=== PATIENT | male | born 1935 | race Caucasian/White ===

== ENCOUNTER 2017-11-11 07:48 | Outpatient (CLI) | payer MEDICARE, OTHER ==
[~2017-11-11] VITALS: Ht 177.8 cm; Wt 65.9 kg
--- NOTE | ~2017-11-11 | HEMODYNAMI ---
PATIENT:ANDRES GONZALES MEDICAL RECORD: [id number] : 31 LOCATION:[facility] ADMISSION DATE: 11/11/17 Generatedon:11/11/201710:29 Patient name: ANDRES GONZALES Patient #: [id number] SSN: : 1935 Date of study: 11/11/2017 Page: Of Hemodynamic Procedure Report Patient Data Patient Demographics Procedure consent was obtained First Name: ANDRES Gender: Male Last Name: CHRISTIAN : 1935 [facility] Initial: SOFIA Age: 82 year(s) Patient #: [id number] Race: Unknown Additional ID: [id number] Contact details Address: [address] [place] [address] [place] State: [place] City: [place] Zip code: [address] Past Medical History Allergies: No known allergies Admission Admission Data Admission Date: 11/11/2017 Admission Time: 7:48 Procedure Procedure Types Cath Procedure Diagnostic Procedure LHC LH w/Coronaries Sedation Charges Moderate Sedation up to 15 minutes Procedure Description Procedure Date Procedure Date: 11/11/2017 Procedure Start Time: 10:17 Procedure End Time: 10:27 Procedure Staff Name Function Chase Terry MD Performing Physician Maggi Cardenas RT Monitor Brandt Infante RN Nurse Arnaldo Guerrero RT Scrub Procedure Data Cath Procedure Fluoroscopy Diagnostic fluoroscopy Total fluoroscopy Time: 1.1 time: 1.1 min min Diagnostic fluoroscopy Total fluoroscopy dose: 498 dose: 498 mGy mGy Contrast Material Contrast Material Type Amount (ml) Isovue 300 60 Entry Location Entry Primary Successful Side Size Upsize Upsize Entry Closure Succes sful Closure Location (Fr) 1 (Fr) 2 (Fr) Remarks Device Remarks Femoral Right 5 Fr Exoseal artery Estimated blood loss: 5 ml Diagnostic catheters Device Type Used For End Catheter Placement MULTIPACK Pigtail 5 Fr LV Angiography catheter MULTIPACK JL 4.0 5Fr Left Coronary catheter Angiography MULTIPACK 3DRC 5Fr Right Coronary catheter Angiography Procedure Medications Medication Administration Route Dosage 0.9% NaCl I.V. 100 ml/hr Oxygen etCO2 Nasal cannula 2 l/min Heparin Flush Bag added to field 2 bags (1000units/500ml NS) Lidocaine 2% added to field 20 Versed I.V. 1 mg Fentanyl I.V. 50 mcg Hemodynamics Rest Heart Rate: 57 (bpm) Snapshots Pre Cath Intra NCS Post Cath Vital Signs Time Heart Resp SPO2 etCO2 NIBP (mmHg) Rhythm Pain Sedation Rate (ipm) (%) (mmHg) Status Level (bpm) 10:01:25 51 13 100 26.5 128/69(105) NSR 0 (11) 10(A) , No pain 10:06:23 50 36 100 22.7 124/66(82) NSR 0 (11) 10(A) , No pain 10:10:58 50 15 100 28 120/67(90) NSR 0 (11) 10(A) , No pain 10:15:26 53 15 100 29.5 96/70(85) NSR 0 (11) 9(A) , No pain 10:20:27 52 18 100 32.5 115/69(92) NSR 0 (11) 9(A) , No pain 10:24:58 60 12 100 31.1 115/71(93) NSR 0 (11) 10(A) , No pain 10:27:54 60 14 100 31.8 116/69(82) NSR 0 (11) 10(A) , No pain Medications Time Medication Route Dose Verified Delivered Reason Notes Eff ectiveness by by 10:02:50 0.9% NaCl I.V. 100 Brandt Brandt Per ml/hr Naresh Infante physician RN RN 10:03:02 Oxygen etCO2 2 Brandt Brandt Per Nasal l/min Naresh Infante physician cannula RN RN 10:03:14 Heparin Flush added 2 Brandt Brandt used for Bag to bags Lorigan Lorigan procedure (1000units/500ml field RN RN NS) 10:03:28 Lidocaine 2% added 20ml Brandt Brandt for local to vial Lorigan Lorigan anesthetic field RN RN 10:11:24 Versed I.V. 1 mg Brandt Brandt for Lorigan Lorigan sedation RN RN 10:11:35 Fentanyl I.V. 50 Brandt Brandt for mcg Lorigan Lorigan sedation RN radiology rn Log Time Note 9:31:46 Time tracking: Regular hours 9:31:51 Plan of Care:Hemodynamics will remain stable., Cardiac rhythm will remain stable., Comfort level will be maintained., Respiratory function will remain adequate., Patient/ family verbilizes understanding of procedure., Procedure tolerated without complication., Recovers from procedure without complications.. 9:44:46 Maggi Cardenas RT(R) sent for patient. Start room use. 9:50:58 Patient received from Pre/Post Procedure Room to CCL 1 Alert and oriented. Tansferred to table in Supine position. 9:51:00 Warm blankets applied, and diane hugger turned on for patient comfort. 9:51:00 Correct patient and procedure confirmed by team. 9:51:02 Signed procedure consent form obtained from patient. 9:51:03 ECG and BP/O2 sat monitors applied to patient. 10:00:40 Vital chart was started 10:00:49 Rhythm: sinus bradycardia 10:00:51 Full Disclosure recording started 10:01:06 H&P Date Dictated: 10/29/2017 Within 30 days and on chart., H&P Addendum completed by physician on day of procedure. (MUST COMPLETE FOR ALL OUTPATIENTS). 10:01:07 Pre-procedure instructions explained to patient. 10:01:08 Pre-op teaching completed and patient verbalized understanding. 10:01:09 Family in waiting room. 10:01:12 Patient NPO since Midnight. 10:01:18 Patient allergic to No known allergies 10:01:20 Is the patient allergic to Iodine/contrast media? No. 10:01:22 Is patient on blood thinner?No 10:02:50 0.9% NaCl 100 ml/hr I.V. was administered by Brandt Infante RN; Per physician; 10:03:02 Oxygen 2 l/min etCO2 Nasal cannula was administered by Brandt Infante RN; Per physician; 10:03:14 Heparin Flush Bag (1000units/500ml NS) 2 bags added to field was administered by Brandt Infante RN; used for procedure; 10:03:28 Lidocaine 2% 20ml vial added to field was administered by Brandt Infante RN; for local anesthetic; 10:08:06 Patient diabetic? No. 10:08:13 Previous problem with sedation/anesthesia? No ? 10:08:18 Snore? Yes 10:08:20 Sleep apnea? No 10:08:22 Deviated septum? No 10:08:23 Opens mouth fully? Yes 10:08:23 Sticks out tongue? Yes 10:08:26 Airway obstruction? No ? 10:08:40 Dentures? No ? 10:08:54 Pre procedure: right dorsailis pedis pulse 2+ Normal; easily identifiable; not easily obliterated 10:09:00 Patient pain scale 0/10 ?. 10:09:08 IV patent on arrival in left hand with 0.9% NaCl at [facility]. 10:09:12 Lab results completed and on chart. 10:09:15 Right groin area was prepped with chlora-prep and draped in sterile fashion 10:09:18 Modified Tony's test Ulnar > 7 seconds. 10:09:19 Alarms reviewed by R. N. 10:09:20 Sharps counted by scrub and verified by R.N. 10:09:28 Use device set Femoral Dx 10:09:29 ACIST Syringe (65552) opened to sterile field. 10:09:29 Bag Decanter (2002S) opened to sterile field. 10:09:29 Medline Cath Pack ([id number]) opened to sterile field. 10:09:32 DIAGNOSTIC WIRE .035 260cm J wire (112099) opened to sterile field. 10:09:34 ACIST Hand Control (56232) opened to sterile field. 10:09:34 ACIST Manifold (53356) opened to sterile field. 10:09:35 DIAGNOSTIC Multipack 5Fr catheter set (BT6742) opened to sterile field. 10:09:36 Tegaderm 4 x 4 (1626W) opened to sterile field. 10:09:37 PERCUTANEOUS ENTRY 19GA needle opened to sterile field. 10:09:45 SHEATH 5Fr Prelude ([id number]) opened to sterile field. 10:10:48 Final Timeout: patient, procedure, and site verified with staff and physician. All members of the team are in agreement. 10:11:01 Right groin site verified by team. 10:11:04 Physical assessment completed. ASA score P 2 - A patient with mild systemic disease as per Chase Terry MD. 10:11:07 Sedation plan: IV Moderate Sedation Medication:Versed, Fentanyl 10:11:24 Versed 1 mg I.V. was administered by Brandt Infante RN; for sedation; 10:11:35 Fentanyl 50 mcg I.V. was administered by Brandt Infante RN; for sedation; 10::48 Baseline sample Acquired. 10:17:28 Procedure started. 10:17:34 Local anesthetic to right femoral artery with Lidocaine 2% by Chase Terry MD.INITIAL ACCESS ONLY 10:18:11 A 5 Fr sheath was inserted into the Right Femoral artery 10:18:38 A MULTIPACK Pigtail 5 Fr catheter was advanced over the wire and used for LV Angiography. 10:19:26 LV gram done using LOVE 10:19:36 EF : 40 % 10::44 Injector settings: Ml/sec: 10, Volume: 20, 10:19:45 Catheter removed. 10:19:52 A MULTIPACK JL 4.0 5Fr catheter was advanced over the wire and used for Left Coronary Angiography. 10:21:28 Catheter removed. 10:21:42 A MULTIPACK 3DRC 5Fr catheter was advanced over the wire and used for Right Coronary Angiography. 10:23:05 Catheter removed. 10:23:08 EXOSEAL 5Fr (EX500) opened to sterile field. 10:24:11 Sheath removed intact; hemostasis achieved with Exoseal to the Right Femoral artery. 10:25:15 Procedure ended.(Physican Out) 10:25:37 Fluoroscopy time 01.10 minutes. 10:25:40 Fluoroscopy dose: 498 mGy 10:25:40 Flurop Dose total: 498 10:26:05 Contrast amount:Isovue 300 60ml. 10:26:06 Sharps counted by scrub and verified by R.N. 10:26:07 Insertion/operative site no bleeding no hematoma. 10:26:10 Post-op/insertion site Right Femoral artery dressed using a 4 x 4 and Tegaderm. 10:26:14 Post right femoral artery:stable, clean and dry 10:26:18 Post Procedure Pulses reassessed and unchanged 10:26:39 Post-procedure physical assessment completed. ASA score P 2 - A patient with mild systemic disease as per Chase Terry MD. 10:26:42 Post procedure rhythm: unchanged. 10:26:55 Estimated blood loss: 5 ml 10:26:56 Post procedure instruction explained to patient.Patient verbalizes understanding. 10:26:57 Patient needs reinforcement of post procedure teaching. 10:26:57 Procedure and supply charges have been captured, reviewed, submitted and are correct. 10:27:01 Vital chart was stopped 10:27:03 See physician's report for complete and final results. 10:27:11 Vital chart was started 10:27:47 Report given to Pre/Post Procedure Room. 10:27:51 Procedure ended. 10:27:51 Full Disclosure recording stopped 10:28:03 End room use (Document Last) 10:28:22 Patient transfered to Pre/Post Procedure Room with Stretcher. 10:29:06 Procedure type changed to Cath procedure, Diagnostic procedure, LHC, LHC w/Coronaries, Sedation Charges, Moderate Sedation up to 15 minutes 10:29:34 DR MENA CONSULTED FOR CABG 10::47 Vital chart was stopped Device Usage Item Name Manufacture Quantity Catalog Hospital Part Current Minimal Lot# / Number Charge Number Stock Stock Serial# Code ACIST Acist 1 [id number] [id number] 050154 [id number] 20 Syringe Medical (86231) Systems Inc Bag Decanter Microtek 1 2001S 506736 08155 834892 5 (2001S) Medical Inc. Medline Cath Cardinal 1 [id number] 740525 16464 705193 5 Pack Health ([id number]) DIAGNOSTIC St Walt 1 306655 862991 053259 295988 30 WIRE .035 260cm J wire (366437) ACIST Hand Acist 1 03420 132235 697252 656405 5 Control Medical (29520) Systems Inc ACIST Acist 1 07452 294595 596678 844171 5 Manifold Medical (81900) Systems Inc DIAGNOSTIC Cardinal 1 HE6556 998928 73451 882494 30 Multipack Health 5Fr catheter set (TU8917) Tegaderm 4 x 3M 1 1626W 892857 118489 370510 5 4 (1626W) PERCUTANEOUS Cook Medical 1 B73580 035920 135590 5 ENTRY 19GA needle SHEATH 5Fr Merit 1 [id number] 933887 570445 199397 5 Prelude Medical ([id number]) MULTIPACK Cardinal 1 674010 5 Pigtail 5 Fr Health catheter MULTIPACK JL Cardinal 1 042484 5 4.0 5Fr Health catheter MULTIPACK Cardinal 1 152311 5 3DRC 5Fr Health catheter EXOSEAL 5Fr Cardinal 1 EX500 350323 578033 868585 10 (EX500) Health Signature Audit [place] Stage Time Signature Unsigned Intra-Procedure 11/11/2017 Maggi 10:29:45 AM Counts RT(R) Signatures Monitor : Maggi Signature : Counts RT Date : Time : [address] [address]
--- NOTE | ~2017-11-11 | OP ---
PATIENT NAME: ANDRES GONZALES MEDICAL RECORD: [id number] :33 LOCATION:D.CAT ADMISSION DATE: SURGEON: KAM BRUSH MD DATE OF OPERATION: 11/11/2017 PROCEDURES: 1. Left heart catheterization. 2. Selective coronary angiography. 3. Left ventriculogram. INDICATION: Angina and coronary artery disease. DESCRIPTION OF PROCEDURE: After informed consent obtained and after detailed discussion of risks, benefits as well as alternative therapies, the patient elected to proceed with angiogram and heart catheterization. The right femoral area is prepped and draped in normal sterile fashion. Right femoral artery was cannulated via modified Seldinger technique with placement of 6-[place] sheath. All catheter exchanges through the sheath. FINDINGS: Left ventriculogram performed in standard 30-degree LOVE view reveals global hypokinesis throughout all segments. Overall ejection fraction 35% to 40%. SELECTIVE CORONARY ANGIOGRAPHY: 1. Left main has a greater than 80% stenosis at the ostium. 2. Left circumflex has 99% stenosis at the ostium. 3. Left anterior descending has multiple areas of 80% and 90% stenosis with heavy calcification proximally. 4. The right coronary has multiple areas of 99% stenosis throughout the vessel. OVERALL IMPRESSION: Severe 3-vessel coronary artery disease with mildly to moderately depressed ejection fraction. Evaluate for coronary artery bypass graft surgery. TRANSINT:[id number] Voice Confirmation ID: [id number] DOCUMENT ID: [id number] KAM BRUSH MD at 1056 CC: [id number] DICTATION DATE: 11/11/17 1029 MANAGER PROGRAMS: 11/11/17 1234 DEP CLI 11/11/[address] [address]
[2017-11-11] MEDS ORDERED: FLOMAX0.4 MG PO (08:25)
[2017-11-11 08:33] VITALS: BP 146/89; Ht 177.8 cm; Wt 65.9 kg
[2017-11-11 08:49] LABS: BASOPHILS 0.5 % (0-2); EOSINOPHILS 0.9 % (0-7); HEMATOCRIT 44.4 % (42.0-54.0); HEMOGLOBIN 15.7 g/dL (13.5-17.5); IMMATURE GRANULOCYTES 0.5 % (0-5); LYMPHOCYTES 22.1 % (15-50); MCH 32.5 pg (26.0-34.0); MCHC 35.4 g/dL (31.0-37.0); MCV 91.9 fL (80.0-100.0); MEAN PLATELET VOLUME 9.8 fL (7.4-10.4); MONOCYTES 6.7 % (2-11); NEUTROPHILS 69.3 % (40-80); PLATELET COUNT 161 10x3/uL (130-400); RBC 4.83 10x6/uL (4.20-6.10); RDW 12.3 % (11.5-14.5); WBC 4.3 10x3/uL (4.8-10.8)
[2017-11-11 08:52] LABS: ANION GAP 15.9 mmol/L (8-16); CALCIUM 8.6 mg/dL (8.5-10.1); CARBON DIOXIDE 25.8 mmol/L (21.0-32.0); CREATININE - SERUM 1.2 mg/dL (0.6-1.3); POTASSIUM - SERUM 3.7 mmol/L (3.5-5.1)
[2017-11-12] MEDS ORDERED: PROSCAR5 MG PO (19:10)
== END 2017-11-11 14:30 | disposition home or self-care (01) ==
LOC: D.CATH 07:48
PROVIDERS: Internal Medicine Interventional Cardiology
DX: I20.9 Angina pectoris, unspecified (principal); R07.9 Chest pain, unspecified; R94.30 Abnormal result of cardiovascular function study, unspecified; Z01.812 Encounter for preprocedural laboratory examination

== ENCOUNTER 2017-11-12 14:05 | Inpatient (IN) | payer MEDICARE, OTHER ==
[2017-11-12] VITALS (10 sets, daily range): BP systolic 122–154; BP diastolic 65–85; BMI 20.8
[~2017-11-12] VITALS: Ht 177.8 cm; Wt 73.6 kg
--- NOTE | ~2017-11-12 | EC ---
PATIENT:ANDRES GONZALES DATE OF SERVICE: 11/12/17 SEX: M MEDICAL RECORD: [id number] DATE OF : 33 LOCATION:[place] [address] AGE OF PATIENT: 82 ADMISSION DATE: 11/12/17 REFERRING PHYSICIAN: INTERPRETING PHYSICIAN: KAM TERRY MD ECHOCARDIOGRAM REPORT ECHO CHARGES Date: 11/13 CLINICAL DIAGNOSIS: ECHOCARDIOGRAPHIC MEASUREMENTS (adult normal given) AC root (d.<3.7cm) cm LV Septum d (<1.2 cm> cm Valve Excursion cm LV Septum (systole) cm Left Atria (s.<4.0cm> cm LVPW d(<1.2cm) cm RV (d.<2.3cm) cm LVPW (sytole) cm LV diastole(<5.6CM) cm MV E-F(>70mm/sec) cm LV systole cm LVOT Diameter cm MV exc.(>10mm) cm Est.ejection fraction (50-75%) % DOPPLER: LVIT cm/sec A cm/sec E cm/sec LA 4.6 cm/sec RVSP mmHg LVOT cm/sec AOP1/2T m/s Asc. Ao cm/sec RVOT cm/sec RA cm/sec PA cm/sec AV Gradient Peak mmHg AV Mean mmHg AV Area cm MV Gradient Peak mmHg MV Mean mmHg MV Area cm COMMENTS: MENA PATIENT Information Technology Architect: Paulette SAWYER Kennel Keeper: Kate Terry TAPE# PACS Pericardial Effusion DATE OF SERVICE: PROCEDURE: Transesophageal echo evaluation of valvular structures during bypass surgery. FINDINGS: 1. Left ventricular chamber size is within normal limits. Left ventricular systolic function is normal. Overall ejection fraction estimated at 55%. 2. Left atrium is enlarged at 4.6 cm. Right atrium and right ventricle chamber sizes are as well mildly dilated. ECHOCARDIOGRAM REPORT [id number] ANDRES GONZALES 3. Valvular structures have normal structure and motion. 4. Doppler interrogation only reveals trace aortic insufficiency, mild mitral regurgitation, no other valvular insufficiency or stenosis. 5. No evidence of pericardial effusion or left ventricular thrombus. TRANSINT:[id number] Voice Confirmation ID: [id number] DOCUMENT ID: [id number] KAM TERRY MD at 1056 CC: [id number] DICTATION DATE: 11/13/17 1249 ALUM PLANT SUPERVISOR: 11/13/17 1305 ADM IN [facility] [address] [place] [id number]
--- NOTE | ~2017-11-12 | HP ---
PATIENT: ANDRES GONZALES MEDICAL RECORD: [id number] ACCOUNT: [id number] [id number] ADMISSION DATE: 11/12/17 HISTORY AND PHYSICAL EXAMINATION DATE OF ADMISSION: 11/12/2017 REASON FOR ADMISSION: Unstable angina, multivessel coronary artery disease. HISTORY OF PRESENT ILLNESS: An 82-year-old male with recent cardiac catheterization, developed unstable angina, admitted. The history and physical recently dictated by Dr. Terry is unchanged. Specifically, the patient has unstable angina, mild dementia. PAST MEDICAL HISTORY: Unchanged. PAST SURGICAL HISTORY: Unchanged. ALLERGIES: Unchanged. MEDICATIONS: Unchanged. SOCIAL HISTORY: Unchanged. FAMILY HISTORY: Unchanged. REVIEW OF SYSTEMS: Unchanged. PHYSICAL EXAMINATION: GENERAL: Elderly male. VITAL SIGNS: Within normal limits. HEENT: Unremarkable. NECK: No carotid bruits. HEART: Regular rate and rhythm. No murmur, gallop or rub. LUNGS: Clear to auscultation. ABDOMEN: Without mass or tenderness. EXTREMITIES: There is palpable radial, femoral and pedal pulses. NEUROLOGIC: Intact. ASSESSMENT: Multivessel coronary artery disease. PLAN: Coronary artery bypass graft. The patient understands the rationale for surgery, alternatives, benefits, risks. He understands the risks including but not limited to bleeding, transfusion, infection, reoperation, graft closure, heart attack, stroke, arrhythmia, organ failure, and . He gives consent. TRANSINT:[id number] Voice Confirmation ID: [id number] DOCUMENT ID: [id number] HISTORY AND PHYSICAL [id number] ANDRES GONZALES JOES M MENA MD at 1023 CC: [id number] DICTATION DATE: 11/13/17 1323 SOCIOLOGY INSTRUCTOR: 11/13/17 1332 ADM IN [place] [id number] [place] [address]
--- NOTE | ~2017-11-12 | OP ---
PATIENT NAME: ANDRES GONZALES MEDICAL RECORD: [id number] :33 LOCATION:[facility] ADMISSION DATE:11/12/17 SURGEON: JOSE M MENA MD DATE OF OPERATION: 11/13/2017 NECKTIE STITCHER: 1. Jamshid Sapp MD 2. MATTHEW Rogers OPERATION PERFORMED: Coronary bypass graft times 3 (reverse saphenous vein graft from aorta to LAD, aorta to obtuse marginal, aorta to posterior descending artery). PREOPERATIVE DIAGNOSIS: Coronary artery disease with unstable angina. POSTOPERATIVE DIAGNOSES: Coronary artery disease with unstable angina, mild aortic insufficiency, and mitral regurgitation. COMPLICATIONS: None. SPECIMENS: None. BLOOD LOSS: Total. CONDITION: Stable. DISPOSITION: ICU. OPERATIVE FINDINGS: 1. Internal mammary artery was densely adherent to the internal ribs and was not able to be taken down in a manner to be used safely, therefore it was oversewn and abandoned. 2. LAD was a 2.0-mm vessel with mild disease. 3. Obtuse marginal 2.0 mm vessel with severe disease. 4. Posterior descending artery 1.5 mm vessel with severe disease, the smaller caliber portion of vein was used for this bypass. 5. Transesophageal echocardiography, 55% ejection fraction, 1+ mitral regurgitation and aortic insufficiency. DESCRIPTION OF PROCEDURE: The patient was brought to the operating suite. General anesthesia was obtained. The patient was prepped and draped. Greater saphenous vein was harvested from the right lower extremity. Side branch was clipped. The vessel removed, inspected for bleeding and interrupted suture was used for bleeding sites and then the leg irrigated and closed. Median sternotomy incision was made. Subcutaneous tissue divided with electrocautery. Sternum was divided with a saw. Left hemisternum was elevated. The pleural cavity was entered. Left internal mammary and vein were taken down as a pedicle graft due to the dense adhesions, it was not deemed usable. Heparin was given. Sternal retractor was placed. Pericardium was opened. The patient was cannulated, placed on cardiopulmonary bypass. Sites for distal anastomoses were selected. Retrograde cardioplegia cannula was inserted. Crossclamp was placed. Cardioplegia given antegrade and retrograde and this repeated at 15-minute intervals during the crossclamp time including down the completed vein grafts. OPERATIVE REPORT [id number] CHRISTIAN,ANDRES SOFIA Distal anastomosis was performed in standard technique. Proximal anastomosis, single cross-clamp technique. The aortic root de-aired and flow restored. Aortic root vent site oversewn with pledgeted Prolene. The patient resumed a spontaneous rhythm. Atrial and ventricular pacing wires were placed. Drains were placed in the mediastinum with the tip in the right pleural cavity, one in left pleural cavity. The patient was stable, weaned from cardiopulmonary bypass. The patient was decannulated. The cannula sites were oversewn. Protamine was given. Irrigation was performed. Pericardial fat was loosely reapproximated. Left chest was evacuated and irrigated. The internal mammary was clipped distally and proximally oversewn. The left chest was evacuated and irrigated and inspected for bleeding. Sternum was closed with wires. The patient was stable and chest closed. Fascia was closed, subcutaneous tissue close, skin was closed. Dermabond was placed. The needle and sponge counts were reported as correct. The patient was taken to ICU in stable condition. TRANSINT:[id number] Voice Confirmation ID: [id number] DOCUMENT ID: [id number] JOSE M MENA MD at 1023 CC: KAM BRUSH [id number] DICTATION DATE: 11/13/17 1321 SHOEMAKER CUSTOM: 11/13/17 1404 ADM IN [place] [id number] [place] [id number]
--- NOTE | ~2017-11-12 | OP ---
PATIENT NAME: ANDRES GONZALES MEDICAL RECORD: [id number] :33 LOCATION:[facility] ADMISSION DATE:11/12/17 SURGEON: MANISH MENA MD DATE OF OPERATION: 11/14/2017 SURGEON: Manish Mena MD CHRONIC MANAGER: MATTHEW Rogers OPERATION PERFORMED: Mediastinal exploration for hemorrhage and evacuation of mediastinal hematoma. PREOPERATIVE DIAGNOSES: Hypotension and mediastinal hematoma. POSTOPERATIVE DIAGNOSES: Mediastinal hematoma with no evidence of cardiac tamponade and no pericardial effusion or hematoma. ANESTHESIA: General endotracheal anesthesia. ESTIMATED BLOOD LOSS: 50 cc, 1 unit packed red blood cells. CONDITION: Stable. DISPOSITION: CV ICU. SPECIMEN: None. OPERATIVE FINDINGS: 1. The patient actually increased his blood pressure after intubation on positive pressure ventilation, Bert was weaned from 0.9-0.3. 2. Removal of old suture material and sternal wires with no change in the blood pressure, clotted hematoma posterior to the sternotomy that extended slightly to the left, internal mammary harvest site, and sternal edges were hemostatic, were inspected 3 times. 3. Pericardial fat sutures were removed and there was no clotted blood within the pericardium, grafts lay appropriately and were patent and the cardiac function was normal. The patient did develop recurrent atrial fibrillation. OPERATIVE INDICATION: The patient with hypotension requiring maximal Bert-Synephrine and developed atrial fibrillation within the 24-hour postoperative period. OPERATIVE PROCEDURE IN DETAIL: The patient was brought to the operating suite. General anesthesia was obtained, the patient was prepped and draped. Old suture material was removed. Sternal wires were removed. Sternum was opened. Hemostasis was ensured around the edges of the sternum. Left chest was carefully explored. No bleeding at the internal mammary harvest site nor the proximal or distal end and the clotted hematoma was removed. The old chest tubes were removed. The sutures and the pericardial fat were removed and inside the pericardium, the graft lay appropriately and there was no clotted blood. Thorough irrigation with vancomycin, irrigation was performed and the pericardial sutures were replaced. The tube was placed in the mediastinum with the tip in the right pleural cavity and a new tube to the left apex. Thorough irrigation was undertaken and all surgical sites again inspected with no bleeding, sternum was closed with wires. A single suture was used around the OPERATIVE REPORT [id number] ANDRES GONZALES wires. Hemostasis was ensured and the chest was closed. The patient was stable and the chest closed. The patient did develop atrial fibrillation. The fascia was closed. Subcutaneous tissue was closed. Skin was closed. Dermabond was placed. The patient returned to the ICU in stable condition. TRANSINT:[id number] Voice Confirmation ID: [id number] DOCUMENT ID: [id number] MANISH MENA MD at 1058 CC: [id number] DICTATION DATE: 11/14/17 1418 PROPELLER INSPECTOR: 11/14/17 1526 ADM IN [place] [id number] [place] [address]
[~2017-11-12 14:05] MED LIST: FLOMAX0.4 MG PO
[2017-11-12 15:44] LABS: BASOPHILS 0.4 % (0-2); EOSINOPHILS 0.8 % (0-7); HEMATOCRIT 44.7 % (42.0-54.0); HEMOGLOBIN 15.7 g/dL (13.5-17.5); IMMATURE GRANULOCYTES 0.4 % (0-5); LYMPHOCYTES 21.4 % (15-50); MCH 32.4 pg (26.0-34.0); MCHC 35.1 g/dL (31.0-37.0); MCV 92.4 fL (80.0-100.0); MEAN PLATELET VOLUME 9.7 fL (7.4-10.4); MONOCYTES 9.7 % (2-11); NEUTROPHILS 67.3 % (40-80); PLATELET COUNT 165 10x3/uL (130-400); RBC 4.84 10x6/uL (4.20-6.10); RDW 12.3 % (11.5-14.5)
[2017-11-12 16:05] LABS: APPEARANCE CLEAR (CLEAR); BILIRUBIN NEGATIVE (NEGATIVE); COLOR YELLOW (YELLOW); GLUCOSE NEGATIVE (NEGATIVE); KETONE NEGATIVE (NEGATIVE); NITRITE NEGATIVE (NEGATIVE); PROTEIN NEGATIVE (NEGATIVE); UROBILINOGEN NORMAL (NORMAL)
[2017-11-12 16:07] LABS: INR 1.07 (0.85-1.17); PROTIME 13.5 SECONDS (11.6-15.0)
[2017-11-12 16:13] LABS: APTT 31.1 SECONDS (22.8-39.4)
[2017-11-12 17:30] LABS: ALBUMIN 4.2 g/dL (3.4-5.0); ANION GAP 13.2 mmol/L (8-16); BILIRUBIN - TOTAL 0.81 mg/dL (0.2-1.3); CALCIUM 8.6 mg/dL (8.5-10.1); CREATININE - SERUM 1.1 mg/dL (0.6-1.3); PHOSPHOROUS 3.9 mg/dL (2.5-4.9); POTASSIUM - SERUM 4.2 mmol/L (3.5-5.1); PROTEIN - SERUM 7.8 g/dL (6.4-8.2); T4 THYROXIN - FREE 0.88 ng/dL (0.76-1.46); THYROID STIMULATING HORMONE 2.46 uIU/mL (0.36-3.74); URIC ACID 3.8 mg/dL (2.6-7.2)
[2017-11-12] MEDS ORDERED: PROSCAR5 MG PO (19:10)
[2017-11-13] VITALS (46 sets, daily range): BP systolic 85–140; BP diastolic 47–78; BMI 20.8
[2017-11-13] MEDS ORDERED: THERMOTABS 1 GM1 GM PO (01:01)
[2017-11-13 08:18] LABS: PLT FUNCT.(P2Y12) PLAVIX 247 PRU (194-418)
[2017-11-13 21:58] LABS: HEMATOCRIT 29.7 % (42.0-54.0); HEMOGLOBIN 10.4 g/dL (13.5-17.5); MCH 31.7 pg (26.0-34.0); MCV 90.5 fL (80.0-100.0); MEAN PLATELET VOLUME 9.9 fL (7.4-10.4); PLATELET COUNT 125 10x3/uL (130-400); RBC 3.28 10x6/uL (4.20-6.10); RDW 12.5 % (11.5-14.5); WBC 20.1 10x3/uL (4.8-10.8)
[2017-11-13 22:17] LABS: LYMPHOCYTES 3 % (15-50); NEUTROPHILS 93 % (40-80)
[2017-11-13 22:18] LABS: PLATELET ESTIMATE NORMAL
[2017-11-13 22:20] LABS: SCHISTOCYTES OCC
[2017-11-14] VITALS (84 sets, daily range): BP systolic 60–123; BP diastolic 44–80; Ht 177.8 cm; Wt 73.6 kg
[2017-11-14 02:24] LABS: HEMATOCRIT 28.4 % (42.0-54.0); HEMOGLOBIN 9.8 g/dL (13.5-17.5)
[2017-11-14 06:15] LABS: HEMATOCRIT 26.9 % (42.0-54.0); HEMOGLOBIN 9.4 g/dL (13.5-17.5); MCH 31.4 pg (26.0-34.0); MCHC 34.9 g/dL (31.0-37.0); MEAN PLATELET VOLUME 10.3 fL (7.4-10.4); RBC 2.99 10x6/uL (4.20-6.10); RDW 12.8 % (11.5-14.5); WBC 16.9 10x3/uL (4.8-10.8)
[2017-11-14 06:38] LABS: ANION GAP 16.4 mmol/L (8-16); BILIRUBIN - TOTAL 0.73 mg/dL (0.2-1.3); CALCIUM 8.2 mg/dL (8.5-10.1); POTASSIUM - SERUM 4.4 mmol/L (3.5-5.1)
[2017-11-14 06:40] LABS: ALBUMIN 2.5 g/dL (3.4-5.0); CREATININE - SERUM 1.5 mg/dL (0.6-1.3); PROTEIN - SERUM 4.7 g/dL (6.4-8.2)
[2017-11-15] VITALS (62 sets, daily range): BP systolic 83–124; BP diastolic 43–88
[2017-11-15 04:57] LABS: HEMATOCRIT 28.6 % (42.0-54.0); HEMOGLOBIN 10.1 g/dL (13.5-17.5); MCH 31.9 pg (26.0-34.0); MCHC 35.3 g/dL (31.0-37.0); MCV 90.2 fL (80.0-100.0); MEAN PLATELET VOLUME 10.4 fL (7.4-10.4); RBC 3.17 10x6/uL (4.20-6.10); WBC 18.7 10x3/uL (4.8-10.8)
[2017-11-15 05:13] LABS: ALBUMIN 2.4 g/dL (3.4-5.0); ANION GAP 11.1 mmol/L (8-16); BILIRUBIN - TOTAL 0.7 mg/dL (0.2-1.3); CALCIUM 7.4 mg/dL (8.5-10.1); CREATININE - SERUM 1.4 mg/dL (0.6-1.3); POTASSIUM - SERUM 4.1 mmol/L (3.5-5.1); PROTEIN - SERUM 4.9 g/dL (6.4-8.2)
[2017-11-16] VITALS (22 sets, daily range): BP systolic 91–118; BP diastolic 56–76
[2017-11-16 04:55] LABS: ALBUMIN 2.2 g/dL (3.4-5.0); ALKALINE PHOSPHATASE 34 U/L (46-116); ALT (SGPT) 23 U/L (10-68); BILIRUBIN - TOTAL 0.66 mg/dL (0.2-1.3); CALC OSMOLALITY 284 mosm/kg (275-300); CALCIUM 7.1 mg/dL (8.5-10.1); CARBON DIOXIDE 29.1 mmol/L (21.0-32.0); CHLORIDE - SERUM 105 mmol/L (98-107); GLUCOSE 110 mg/dL (74-106); POTASSIUM - SERUM 3.7 mmol/L (3.5-5.1); PROTEIN - SERUM 4.9 g/dL (6.4-8.2); SODIUM 140 mmol/L (136-145); UREA NITROGEN 26 mg/dL (7-18); eGFR NON AFRICAN AMERICAN 76 mL/min (90-120)
[2017-11-16 05:01] LABS: MCH 31.7 pg (26.0-34.0); MCHC 34.6 g/dL (31.0-37.0); MCV 91.5 fL (80.0-100.0); MEAN PLATELET VOLUME 10.4 fL (7.4-10.4); RBC 2.84 10x6/uL (4.20-6.10); WBC 12.6 10x3/uL (4.8-10.8)
[2017-11-17] VITALS (24 sets, daily range): BP systolic 80–135; BP diastolic 53–72
[2017-11-17 05:25] LABS: HEMATOCRIT 26.9 % (42.0-54.0); HEMOGLOBIN 9.1 g/dL (13.5-17.5); MCH 31.1 pg (26.0-34.0); MCHC 33.8 g/dL (31.0-37.0); MCV 91.8 fL (80.0-100.0); RBC 2.93 10x6/uL (4.20-6.10); RDW 13.6 % (11.5-14.5); WBC 9.3 10x3/uL (4.8-10.8)
[2017-11-17 05:43] LABS: ALBUMIN 2.2 g/dL (3.4-5.0); ANION GAP 8.2 mmol/L (8-16); BILIRUBIN - TOTAL 0.7 mg/dL (0.2-1.3); CALCIUM 7.1 mg/dL (8.5-10.1); CARBON DIOXIDE 27.5 mmol/L (21.0-32.0); CREATININE - SERUM 1.1 mg/dL (0.6-1.3); POTASSIUM - SERUM 3.7 mmol/L (3.5-5.1)
[2017-11-18] VITALS (24 sets, daily range): BP systolic 95–137; BP diastolic 57–82
[2017-11-18 05:58] LABS: HEMATOCRIT 26.4 % (42.0-54.0); MCH 31.3 pg (26.0-34.0); MCHC 34.1 g/dL (31.0-37.0); MCV 91.7 fL (80.0-100.0); MEAN PLATELET VOLUME 9.9 fL (7.4-10.4); RBC 2.88 10x6/uL (4.20-6.10); RDW 13.3 % (11.5-14.5); WBC 7.8 10x3/uL (4.8-10.8)
[2017-11-18 06:18] LABS: ALBUMIN 2.2 g/dL (3.4-5.0); ALKALINE PHOSPHATASE 39 U/L (46-116); ALT (SGPT) 23 U/L (10-68); CALCIUM 7.3 mg/dL (8.5-10.1); CARBON DIOXIDE 26.3 mmol/L (21.0-32.0); CHLORIDE - SERUM 104 mmol/L (98-107); GLUCOSE 101 mg/dL (74-106); POTASSIUM - SERUM 3.8 mmol/L (3.5-5.1); PROTEIN - SERUM 5.1 g/dL (6.4-8.2); SODIUM 134 mmol/L (136-145); eGFR NON AFRICAN AMERICAN 76 mL/min (90-120)
[2017-11-18 06:23] LABS: CALC OSMOLALITY 269 mosm/kg (275-300); UREA NITROGEN 18 mg/dL (7-18)
[2017-11-19] VITALS (23 sets, daily range): BP systolic 88–128; BP diastolic 50–79
[2017-11-20] VITALS (9 sets, daily range): BP systolic 98–123; BP diastolic 58–69
[2017-11-20] MEDS ORDERED: CORDARONE200 MG PO (09:13)
[2017-11-20] MEDS ORDERED: K-DUR20 MEQ PO (09:13)
[2017-11-20] MEDS ORDERED: ASPIRIN81 MG PO (09:13)
== END 2017-11-20 12:29 | disposition home health service (06) | DRG 236 ==
LOC: D.CVICU 14:05
PROVIDERS: Thoracic Surgery (Cardiothoracic Vascular Surgery)
PROC: 06BP0ZZ Excision of Right Saphenous Vein, Open Approach (ICD-10-PCS; 2017-11-13)
PROC: 5A1221Z Performance of Cardiac Output, Continuous (ICD-10-PCS; 2017-11-13)
PROC: 021209W Bypass Coronary Artery, Three Arteries from Aorta with Autologous Venous Tissue, Open Approach (ICD-10-PCS; principal; 2017-11-13 07:30)
PROC: 0WCC0ZZ Extirpation of Matter from Mediastinum, Open Approach (ICD-10-PCS; 2017-11-14)
DX: I25.110 Atherosclerotic heart disease of native coronary artery with unstable angina pectoris (principal); I48.1 Persistent atrial fibrillation; M96.841 Postprocedural hematoma of a musculoskeletal structure following other procedure; F03.90 Unspecified dementia, unspecified severity, without behavioral disturbance, psychotic disturbance, mood disturbance, and anxiety; R31.0 Gross hematuria; N40.0 Benign prostatic hyperplasia without lower urinary tract symptoms; Y84.8 Other medical procedures as the cause of abnormal reaction of the patient, or of later complication, without mention of misadventure at the time of the procedure; Y71.3 Surgical instruments, materials and cardiovascular devices (including sutures) associated with adverse incidents

== ENCOUNTER → 2017-11-26 08:42 | Outpatient (CLI) | payer MEDICARE, OTHER ==
[2017-11-14 14:34] VITALS: BMI 20.8
[~2017-11-26 08:42] MED LIST changes: +ASPIRIN81 MG PO; +CORDARONE200 MG PO; +K-DUR20 MEQ PO; +PROSCAR5 MG PO; +THERMOTABS 1 GM1 GM PO
[2017-11-26 09:21] LABS: ALBUMIN 2.7 g/dL (3.4-5.0); ANION GAP 12.6 mmol/L (8-16); BILIRUBIN - TOTAL 0.6 mg/dL (0.2-1.3); CALCIUM 8.1 mg/dL (8.5-10.1); CARBON DIOXIDE 25.5 mmol/L (21.0-32.0); CREATININE - SERUM 1.3 mg/dL (0.6-1.3); POTASSIUM - SERUM 4.1 mmol/L (3.5-5.1); PROTEIN - SERUM 6.4 g/dL (6.4-8.2)
[2017-11-26 09:22] LABS: HEMATOCRIT 32.5 % (42.0-54.0); HEMOGLOBIN 10.9 g/dL (13.5-17.5); MCHC 33.5 g/dL (31.0-37.0); MCV 92.3 fL (80.0-100.0); MEAN PLATELET VOLUME 8.6 fL (7.4-10.4); RBC 3.52 10x6/uL (4.20-6.10); RDW 14.3 % (11.5-14.5); WBC 8.2 10x3/uL (4.8-10.8)
== END | disposition home or self-care (01) ==
LOC: D.LAB 08:30 → D.RAD 09:00
PROVIDERS: Thoracic Surgery (Cardiothoracic Vascular Surgery)
DX: I25.10 Atherosclerotic heart disease of native coronary artery without angina pectoris (principal); D64.9 Anemia, unspecified; J90 Pleural effusion, not elsewhere classified